=== PATIENT | female | born 1955 | race Caucasian/White ===

== ENCOUNTER 2021-10-23 13:06 | Day surgery (SDC) | payer SELFPAY ==
[2021-10-18 11:49] LABS: Hemoglobin 13.2 g/dL (12.0-15.0); Mean Corp Hgb Conc 32.2 g/dL (32-36); Mean Corpuscular Volume 93.2 fL (81-99); Platelet Count 271 K/mm3 (150-450); RBC Distribution Width CV 13.5 % (11.6-14.6); RBC Distribution Width SD 46.4 fl (35.1-43.9); White Blood Count 6.4 K/mm3 (4.4-11.0)
[2021-10-18 11:58] LABS: International Normalized Ratio 0.9
[2021-10-18 11:59] LABS: Partial Thromboplast Time 27.8 Seconds (24.1-36.2)
--- NOTE | 2021-10-18 12:08 | EKG12_ITS ---
Test Reason : PRE-OP Blood Pressure : / mmHG Vent. Rate : 067 BPM Atrial Rate : 067 BPM P-R Int : 192 ms QRS Dur : 084 ms QT Int : 400 ms P-R-T Axes : 058 001 026 degrees QTc Int : 422 ms Normal sinus rhythm Normal ECG Confirmed by ADAM PÉREZ, IRAM ([id number]), editor newspaper ARI KWOK ([id number]) on 10/20/2021 6:35:27 AM Referred By: Asaf Mario Confirmed By:IRAM MEDINA MD
[2021-10-18 12:15] LABS: ALB/GLOB Ratio 0.9 RATIO (0.9-2.4); AST(SGOT) 20 U/L (15-37); Alanine Aminotransfer ALT/SGPT 37 U/L (13-56); Albumin, Serum 3.5 g/dL (3.2-5.0); Alkaline Phosphatase 60 U/L (45-117); Anion Gap 7 (5-15); BUN 16 mg/dL (7-18); BUN/Creat Ratio 18.7 RATIO (10-20); Chloride 106 mmol/L (98-107); Creatinine, Serum 0.86 mg/dL (0.55-1.02); EST Glomerular Filtration Rate 71 mL/min (>60); Est Glom Filt Rate - Afr Amer 85 mL/min (>60); Glucose 86 mg/dL (74-106); Magnesium 2.2 mg/dL (1.6-2.6); Protein, Total 7.5 g/dL (6.4-8.2); Sodium Level 141 mmol/L (136-145)
--- NOTE | 2021-10-22 17:18 | PCM.HP.BLA ---
History and Physical Date of Admission: 10/23/21 Surgical History and Physical Vania Azul, a 65 year old female 9 0 1 0 9, presents for Vaginal Hysterectomy and AP Repair on October 23,m 2020 at 7:30. -- Prolapse Symptoms; Uterovaginal Prolapse -- She has noticed a low pressure feeling often, and wasn't sure what was causing same. Used a pessary for several months to be able to wait until she can have her surgery in September as she had 2 daughters getting . Prolapse Bladder occurs intermittantly. It is located in the vagina. Vania characterizes it to be non-radiating. Vania characterizes the quality low pressure. Severity is moderate and not improving. MEDICATIONS HISTORY: Patient is also takin. Multiple Vitamin, Womens Tablet, One pill by mouth once a day 2. [place] Thyroid 60 mg tablet, One pill by mouth once a day ALLERGIES: NKDA Infections - Chicken pox, Mumps and Measles Illnesses - none Accidents - None Hospitalizations - Childbirth Review of Systems: GENERAL - Denies fever, or chills SKIN - Denies skin changes EYES - Denies visual changes EARS - Denies difficulty hearing NOSE - Denies nasal congestion or bleeding MOUTH - Denies sore throat or difficulty swallowing NECK - Denies pain or swelling RESPIRATORY - Denies shortness of breath or wheezing CARDIOVASCULAR - Denies palpitations or chest pain GASTROINTESTINAL - Denies nausea, vomiting, diarrhea, constipation GENITOURINARY - Denies dysuria, frequency of urination, incontinence of urine MUSCULOSKELETAL - Denies joint or muscle pain NEUROLOGICAL - Denies localized numbness or weakness PSYCHIATRIC - Denies depression or anxiety ENDOCRINE - Denies heat or cold intolerance, weight loss or gain HEMATO-IMMUNOLOGIC - Denies excesive bleeding with cuts SOCIAL HISTORY: Alcohol Use - None Smoking - Never Diet - no special diet Lifestyle - moderate stress lifestyle and Exercise - active Seat Belt Use - always Employer - [employer] Illicit Drug Use - None Sexual Activity - Spouse-Sig Other Name - Clem Spouse-Sig Other Occupation - [employer] Children Name(s) - 9 children Control - postmenopausal FAMILY HISTORY: MENSTRUAL HISTORY: LMP Known?- Postmenopausal PAST PREGNANCIES: Total Pregnancies - 10; Full Term Pregnancies - 9; Premature - 0; Abortions, Induced - 0; Abortions, Spontaneous - 1; Ectopics - 0; Multiple Births - 0; Living Children - 9 SURGICAL HISTORY: 1. 12/27/2011 hysteroscopy, D and C ; Asaf Mario M.D. - PHYSICAL EXAM BP- 132/70 Sitting, Right arm, regular cuff Weight- 147.0 lbs Height- 62.5 inch BMI:26.5 CONSTITUTIONAL - NAD, well nourished, and well developed SKIN - No rash, lesions, or ulcers HEENT - Normocephalic, PERRLA, EOMI NECK - no nodes, no nuchal rigidity and thyroid normal size and texture LYMPH NODES - Palpation of lymph nodes in neck and groins within normal limits LUNGS - CTA x2 without wheezes, crackles or rales CARDIAC - Regular rate and rhythm without rubs, murmurs, or gallops ABDOMEN - Without hepatosplenomegaly, distention, masses, rebound, or guarding; normal bowel sounds, no hernias EXTREMITIES - No edema or calf tenderness NEUROLOGICAL - Cranial nerves II-XII grossly intact PSYCHIATRIC - A and O to time, place, person, mood and affect External Genitial Vagina - non-tender without lesions Urethra/Urethral Meatus - non-tender Bladder - non-tender Vagina - loss of rugae and cystocele 1 cm outside introitus; open perineum with moderate rectocele Cervix - without cervical motion tenderness and has normal size and features without evident lesions and protrudes to the introitus with bearing down Uterus - multiparous size 6 cm & wt 75-125 g Adnexa - clear without massess or tenderness ASSESSMENT/PLAN: 1. Uterovag Prolapse Incomplete Tried for the #3, four, and five ring pessary is with support with no success. Started intravaginal estrogen in preparation for surgery. Plan Vag Hyst/AP Repair. Discussed RBAs and all questions answered.
[2021-10-23] VITALS (25 sets, daily range): BP systolic 83–128; BP diastolic 51–69; PULSE 63–89; RESP 16; TEMP 36.3–36.6; O2SAT 94–100; BMI 25.9
[2021-10-23] MEDS: Lactated Ringers 1,000 ML 40 ML IV ×2 (09:27→14:48)
[2021-10-23] MEDS: Acetaminophen 500 MG Tablet 1000 MG PO ×3 (09:28→23:48)
[2021-10-23] MEDS: Gabapentin 600 MG Tablet PO (09:28)
[2021-10-23 09:45] LABS: Bedside Glucose 79 mg/dL (70-110)
--- NOTE | 2021-10-23 10:07 | OP.PCM_ITS ---
Report of Operation Date of Procedure: 10/23/21 Pre-Operative Diagnosis: Incomplete Uterovaginal Prolapse, Cystocele, Rectocele Post-Operative Diagnosis: Incomplete Uterovaginal Prolapse, Cystocele Rectocele Surgery/Procedure Performed:: Vaginal Hysterectomy and Anterior Posterior Repair Description of Surgical Findings:: 6 cm uterus with cystocele and rectocele that protruded to the introitus, cervix which protruded 2-3 cm outside the introitus. Surgeon: Asaf Mario side stitching machine operator: Fernandez Muniz Type of Anesthesia: General (LMA) Anesthesiologist: Jeronimo Rowland Specimen's removed: Uterus and vaginal mucosa Drains: Lynn to straight drain Estimated Blood Loss (mL): 100 cc Fluids Replaced: Crystalloid Description of Procedure: Surgeon: Asaf Mario MD, FACOG Indications: This is a 65-year-old who is been having problems with symptomatic uterovaginal prolapse. Conservative measures have not been helpful. Given this the patient desires that we proceed the above procedure. She has been counseled regarding the risk and indications of this procedure including the possibility of bleeding, infection, and injury to surrounding structures such as bowel bladder. All questions were answered. Procedure: Patient was taken to the operating room where after induction of general anesthesia she was placed in the dorsal lithotomy position and prepped and draped in the usual sterile fashion. A Lynn catheter was placed. Anterior cervix was grasped with a tenaculum and anterior cervix circumscribed with cautery on a setting of 35 W coagulation. Anterior vaginal mucosa was unde rmined and anterior peritoneum was easily entered. The posterior aspect of the cervix was circumscribed with a knife and posterior peritoneum easily entered. Progressive bites were taken on either side of the uterine cervix and each pedicle ligated with 0 Vicryl suture. Superior pedicles were ligated ?2 with 0 Vicryl suture and sidewall pedicles were examined and oversewn where necessary with [id number] 0 Vicryl suture to achieve hemostasis. Posterior vaginal cuff was oversewn with running locked 0 Vicryl suture. Hemostasis was noted and peritoneum was closed in a pursestring fashion incorporating superior pedicles into the stitch. Attention was turned toward the anterior repair portion of the procedure. Anterior vaginal mucosa was undermined and divided and then imbricated toward the midline with interrupted 0 Vicryl sutures. Vaginal mucosa was trimmed and then closed with interrupted 2-0 chromic suture. Vaginal cuff was then closed front to back with interrupted [id number] 0 Vicryl suture. Hemostasis was noted. Attention was turned toward the posterior repair portion of the procedure. Remnants of the hymenal ring were grasped with Allises and a V-shaped incision was made in the perineum. Rectovaginal mucosa was then undermined divided and then imbricated toward the midline with interrupted 0 Vicryl suture. Vaginal mucosa was trimmed and then closed with running locked 2-0 chromic suture. Remnants of the bulbocavernosus muscles were identified and brought toward the midline with a single [id number] 0 Vicryl suture and perineum was closed in the usual fashion with running and subcuticular, and [id number] 2-0 chromic suture. Hemostasis was noted. Lynn catheter was again opened and clear yellow urine was noted. Vagina was packed with iodoform tape. Patient tolerated the procedure well was taken to recovery room in satisfactory condition; sponge instrument and needle counts were all reportedly correct. Estimated blood loss for the case was 100 cc. Ancef 2 g IV was given prior to beginning the operative procedure. There were no apparent complications of the surgery. Specimen to pathology was uterus and vaginal mucosa. Grafts/Implants Used: None Complications None Admit VTE Documentation VTE Present on Admission: Yes VTE Mechan Device Prophylaxis: SCD's VTE Pharm Prophylaxis ordered?: Yes
--- NOTE | 2021-10-23 10:40 | HYST_PTH ---
PATIENT: STEWART SALTER LOC: [facility] [place] U#:[id number] AGE/SX: 65/F ROOM: RE10/23/[address]: Dr. Asaf Mario MD : [id number] BED: DIS: 10/24/2021 SPEC #: [id number] RECD: 10/23/21 14:18 STATUS: ALIRIO RETaiwo #: [id number] EDILBERTO: 10/23/21 10:[address]: Asaf Mario DEPT: SURGICAL PATHOLOGY RECD BY: Sharon Lopes ENTERED: 10/24/21 09:36 SP TYPE: HYSTERECT OTHR DR: Dr. Rebecca Murrell, DO Tissues: Uterus, NOS Procedures: Surgery Specimen Level V HEADER OPERATION: ERAS, vaginal hysterectomy, A & P repair PRE-OP DIAGNOSIS: Uterovaginal prolapse incomplete TISSUE SUBMITTED: Uterus and vaginal mucosa MICROSCOPIC DIAGNOSIS Uterus and vaginal mucosa, vaginal hysterectomy and A & P repair: Cervix ? mild chronic cystic cervicitis and squamous metaplasia. Endometrium ? proliferative endometrium. Myometrium - no pathologic diagnosis. Vaginal mucosa ? fragments of squamous mucosa with mild chronic inflammation. LUPIS:russel 10/25/2021 MICROSCOPIC DESCRIPTION Slides are reviewed. GROSS DESCRIPTION Received in fixative is one container labeled with the patient's name and designated uterus and vaginal mucosa. The specimen consists of a hysterectomy specimen consisting of uterus with cervix and detached mucosal tissue. The uterus with cervix weighs 42 gm and measures 8 x 3.5 x 2.5 cm. The serosal surface is [place], glistening. The ectocervical mucosa is unremarkable. The external os is slit-like in contour. The triangular endometrial cavity measures 4 cm in length and 1.5 cm in width. The endometrium is east[place], glistening without any mass lesion and measures <0.1 cm in thickness. Sections of the uterine wall do not reveal any mass lesion and it measures 1.2 cm in thickness. Also present in the container are multiple detached pieces of mucosal tissue measuring in aggregate 6 x 5 x 1 cm. No mucosal lesion is identified. Multiple instrumentation tinsley are noted. Stock Grader sections are submitted in seven cassettes as follows: 1 - anterior cervix, 2 - posterior cervix, 3 & 4 - anterior uterine wall, 5 & 6 - posterior uterine wall, 7 ? detached mucosal tissue. / LUPIS:russel 10/24/21 TC:5 CPT: 83707
[2021-10-23] MEDS: Cefazolin 2 GM in 0.9% Normal Saline 100 ML IV (11:02)
--- NOTE | 2021-10-23 12:57 | DCINST_ITS ---
Discharge Instructions Diet Discharge Diet: No restrictions Activity Discharge Activity: May Shower and May Take a Tub Bath May resume sexual activity in: 6 weeks (nothing in the vagina.) Lifting Restrictions: 25 pounds for 6 weeks. Dressing / Incision Call your doctor if your incision/area has: Continuous Slow Oozing, Sudden Increased Bleeding, Increased Pain/ Swelling, Increased Redness and Foul Smelling Discharge Call your doctor if you observe: Fever of 101 or Higher, Inability to urinate, Inability to have a bowel movement, Using more than 1 pad per hour and - (Some vaginal bleeding may be noted for up to 4-8 weeks.) Cleanse incision/area with: - (Let the soapy water run over your incision, rinse and pat dry.) Additional Dressing/Incision Instructions:: Nothing in the vagina for 6 weeks please; no lifting more than 20-25 lbs for 6 weeks. Use Ibuprophen 800 mg orally every 8 hours as needed for pain. Can also add Tylenol 1000 mg every 8 hours if needed for pain. If Ibuprophen and Tylenol are not effective then use the Oxycodone but keep in mind it can cause serious constipation issues. Drink lots of water. Call if bleeding more than a pad per hour. Use the colace as constipation is a big issue after this type of surgery. Steps and walking are OK. Activity is encouraged but do not over do it !! Follow Up Care Please Follow Up With: Asaf Mario MD When: Call [phone] for an appointment to be seen in 2 weeks. Test Results: Test results from this visit will be discussed in further detail at your follow-up appointment, if applicable. Discharge Plan Admission Primary Reason for Your Visit: Vaginal Hysterectomy and Anterior Posterior Repair Attending Provider: Asaf Mario Primary Care Provider: Rebecca Murrell Discharge Orders/Prescriptions Prescriptions: New oxycodone 5 mg capsule 5 mg PO Q6H PRN (Reason: pain (scale score 7-10)) 7 Days Qty: 7 RF: 0 docusate sodium 100 mg tablet 100 mg PO BID PRN (Reason: constipation) Qty: 60 RF: 1 No Action thyroid (pork) [[place] Thyroid] 60 mg tablet 60 mg PO DAILY RF: 0 Other Ambulatory Orders: 12 Lead EKG (Routine) Location: None Selected Ordered By: Dr. Asaf Mario Referrals / Follow Up: Rebecca Murrell DO [Primary Care Provider] - Disposition Disposition (needs filled in before D/C Order can be placed): Home, Self Care
[2021-10-23] MEDS: Ondansetron 4 MG/2 ML Vial IV (13:25)
--- NOTE | 2021-10-23 13:48 | SUR.PHASEI ---
PATIENT MONITORED ON etCO2 FOR ERAS PROTOCOL. ~34 READING AT THIS TIME. WILL CONT TO MONITOR. VSS.
[2021-10-23] MEDS: Cefazolin 1 GM/50 ML BAG IV ×2 (19:06→22:11)
[2021-10-23] MEDS: Docusate Sodium 100 MG Capsule PO (22:11)
[2021-10-24 02:30] VITALS: BP 100/60; PULSE 77; RESP 16; TEMP 36.8; O2SAT 96
[2021-10-24] MEDS: Cefazolin 1 GM/50 ML BAG IV (06:21)
[2021-10-24] MEDS: Acetaminophen 500 MG Tablet 1000 MG PO ×2 (06:23→11:57)
--- NOTE | 2021-10-24 07:07 | PCS.PANDOC ---
PANDEMIC DOCUMENTATION INITIATED: Date: 07/10/2021 Time: 190
[2021-10-24 07:15] LABS: Hematocrit 34.3 % (37-47); Hemoglobin 11.3 g/dL (12.0-15.0); Mean Corp Hgb Conc 32.9 g/dL (32-36); Mean Corpuscular Hgb 30.9 pg (27.0-32.0); Mean Corpuscular Volume 93.7 fL (81-99); Mean Platelet Vol. 10.4 fl (6.2-12.0); Platelet Count 230 K/mm3 (150-450); RBC Distribution Width CV 13.8 % (11.6-14.6); RBC Distribution Width SD 47.6 fl (35.1-43.9); Red Blood Count 3.66 M/mm3 (4.2-5.4); White Blood Count 11.6 K/mm3 (4.4-11.0)
--- NOTE | 2021-10-24 08:41 | PCM.PN.OB ---
Subjective Subjective Pt without complaints. Tolerating diet well. Positive flatus. Minimal vaginal bleeding. Vag pack removed. Release to home with routine instructions when able to void on own. F/U 2 weeks. Objective Data Objective Data Vital Signs: Vital Signs Temp Pulse Resp BP Pulse Ox 98.3 F 77 16 100/60 96 10/24/21 02:30 10/24/21 02:30 10/24/21 02:30 10/24/21 02:30 10/24/21 02:30 Oxygen Flow Rate (L/min) 4 Oxygen Delivery Method Room Air Weight: 146 lb 2.664 oz Body Mass Index (BMI) 25.9 Intake & Output: Intake and Output for Last 24 Hours 10/22/21 10/23/21 10/24/21 23:59 23:59 23:59 Intake Total 2314 / 2314 50 / 50 Output Total 300 / 750 1900 / 1900 Balance 2013 1564 -1850 / -1850 Lab / Micro Data Result Diagrams: 10/24/21 06:00 10/18/21 11:16 Labs: Laboratory Results - last 24 hr 10/23/21 09:17: POC Glucose 79 10/24/21 06:00: WBC 11.6 H, RBC 3.66 L, Hgb 11.3 L, Hct 34.3 L, MCV 93.7, MCH 30.9, MCHC 32.9, RDW Std Deviation 47.6 H, RDW Coeff of Alan 13.8, Plt Count 230, MPV 10.4 Micro: Microbiology 10/18/21 12:14 Interface Orders SARS-CoV-2 Antigen (Rapid) - Final
[2021-10-24 09:03] VITALS: BP 100/59; PULSE 72; RESP 16; TEMP 36.8; O2SAT 99
[2021-10-24] MEDS: Thyroid 60 MG Tablet PO (09:11)
[2021-10-24] MEDS: Docusate Sodium 100 MG Capsule PO (09:11)
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
== END 2021-10-24 12:02 | disposition home or self-care (01) ==
LOC: SDC 17:12 → MS3 10-24 10:41
PROVIDERS: Anesthesiology; PCP Family Medicine; Referring Provider Obstetrics & Gynecology; Visit Provider Obstetrics & Gynecology
PROC: (CPT 58260; principal; 2021-10-23 10:20)
DX: N81.2 Incomplete uterovaginal prolapse (principal); E03.9 Hypothyroidism, unspecified; Z79.899 Other long term (current) drug therapy; Z20.822 Contact with and (suspected) exposure to COVID-19
CPT/HCPCS: 00944; 57260; 58260; 36415; 80053; 82962; 83735; 85027; 85610; 85730; 86850; 86900; 86901; 87426; 88307; 93005; 99251; C9803; J7120; G0463; J2405